=== PATIENT | male | born 1965 | race Caucasian/White ===

== ENCOUNTER 2019-03-04 09:07 | Inpatient (IN) | payer OTHER ==
[2019-03-04 09:27] VITALS: BMI 25.7
--- NOTE | 2019-03-04 09:48 | HP ---
COWS - Scale Resting Pulse: 1= TN 81-100 Sweatin= Chills/Flushing Restless Observation: 0= Sits Still Pupil Size: 0= Normal to Room Light (last used in the morning so low withdrawals scale) Bone or Joint Aches: 0= None Runny Nose/ Eye Tearin= Nasal Congestion GI Upset > 30mins: 2= Nausea/Diarrhea Tremor Observation: 2= Slight Tremor Visible Yawning Observation: 0= None Anxiety or Irritability: 0= None Goose Flesh Skin: 3=Piloerection COWS Score: 10 CIWA Score - Admission Criteria OASAS Guidelines: Admission for Medically Managed Detox: Requires at least one of the followin. CIWA greater than 12 2. Seizures within the past 24 hours 3. Delirium tremens within the past 24 hours 4. Hallucinations within the past 24 hours 5. Acute intervention needed for co occurring medical disorder 6. Acute intervention needed for co occurring psychiatric disorder 7. Severe withdrawal that cannot be handled at a lower level of care (continued vomiting, continued diarrhea, abnormal vital signs) requiring intravenous medication and/or fluids 8. Admitting History and Physical - Admission Chief Complaint: "I want to detox from heroin alcohol and cocaine." History of Present Illness: 53-year-old male sent in 1 Am today to be evaluated for cellulitis and found to not have acute cellulitis as per attending note. He was sent back to [facility] for admission of substance use disorder "He does admit to IV drug use and has multiple scars and track lindquist along the hands and forearms with no tenderness or areas of fluctuance There are multiple areas with scabbing but no signs consistent with acute cellulitis Plan for x-rays to rule out foreign body with plan to DC back to rehab facility " He is using 15-20 bags of heroin intravenously for 30 years. He last used yesterday. He endorses getting some street methadone yesterday. He overdosed last year and seen in the [place]. He was abstinent for 8.5 years and relapsed 20 months. He attempted detox at [facility] and [facility] in [facility] [place] on 2 weeks ago and last week, respectively. He was to be referred to long-term rehab but there were no beds and he started using. He is drinking 2 pints whisky every other day, 4-5 beers every other day. He last drank 4 days ago. He smokes 1/2 ppd of ciggarettes. He is using cocaine $10 3 times per week, when he has money. 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 He is unemployed and homeless but not in care home system. He has slept on the streets or go to ER's. History Source: Patient Limitations to Obtaining History: No Limitations - Past Medical History Psych: Yes: Anxiety - Past Surgical History Past Surgical History: Yes: None - Advance Directives Advance Directives: No: Living Will, Health Care Proxy, DNR - Smoking History Smoking history: Current every day smoker Aproximately how many cigarettes per day: 10 - Alcohol/Substance Use Hx Alcohol Use: No - Social History Usual Living Arrangement: Yes: Alone Do you think of yourself as: Straight/Heterosexual ADL: Independent Occupation: grill chef, unemployed History of Recent Travel: No Admission ROS S - HPI Allergies/Adverse Reactions: Allergies Allergy/AdvReac Type Severity Reaction Status Date / Time haloperidol [From Haldol] Allergy Difficulty Verified 03/04/19 09:21 Breathing Exam Limitations: No Limitations - Ebola screening Have you traveled outside of the country in the last 21 days: No Have you had contact with anyone from an Ebola affected area: No Have you been sick,other than usual withdrawal symptoms: No Do you have a fever: No - Review of Systems Constitutional: Chills, Unintentional Wgt. Loss EENT: reports: No Symptoms Reported Respiratory: reports: No Symptoms reported Cardiac: reports: No Symptoms Reported GI: reports: No Symptoms Reported : reports: No Symptoms Reported Musculoskeletal: reports: No Symptoms Reported Integumentary: reports: No Symptoms Reported Neuro: reports: No Symptoms reported Endocrine: reports: No Symptoms Reported Hematology: reports: No Symptoms Reported Psychiatric: reports: Judgement Intact, Mood/Affect Appropiate, Orientated x3 Other Systems: Reviewed and Negative Patient History - Patient Medical History Hx Anemia: No Hx Asthma: No Hx Chronic Obstructive Pulmonary Disease (COPD): No Hx Cancer: No Hx Cardiac Disorders: No Hx Congestive Heart Failure: No Hx Hypertension: No Hx Hypercholesterolemia: No Hx Pacemaker: No HX Cerebrovascular Accident: No Hx Seizures: No Hx Dementia: No Hx Diabetes: No Hx Gastrointestinal Disorders: No Hx Liver Disease: No Hx Genitourinary Disorders: No Hx Sexually Transmitted Disorders: No Hx Renal Disease (ESRD): No Hx Thyroid Disease: No Hx Human Immunodeficiency Virus (HIV): No (tested last week negative) Hx Hepatitis C: Yes (treated but no follow up) Hx Depression: No Hx Suicide Attempt: No Hx Bipolar Disorder: No Hx Schizophrenia: No Other Medical History: anxiety disorder - Patient Surgical History Past Surgical History: No - Smoking Cessation Smoking history: Current every day smoker Aproximately how many cigarettes per day: 10 Hx Chewing Tobacco Use: No Initiated information on smoking cessation: Yes 'Breaking Loose' booklet given: 03/04/19 - Substances abused Alcohol Substance route: Oral Frequency: Daily Amount used: 2 pint of whiskey & 4 beers Age of first use: 17 Date of last use: 02/18/19 Heroin Substance route: Injection Frequency: Daily Amount used: 15 bags Age of first use: 23 Date of last use: 03/03/19 Cocaine Substance route: Injection Frequency: Daily Amount used: $20-30 Age of first use: 17 Date of last use: 03/02/19 Admission Physical Exam S - Vital Signs Vital Signs: Vital Signs - 24 hr 03/04/19 09:22 Temperature 97.1 F L Pulse Rate 90 Respiratory 18 Rate Blood Pressure 115/67 - Physical General Appearance: Yes: No Apparent Distress, Tremorous, Sweating HEENTM: Yes: EOMI, Hearing grossly Normal, Normal ENT Inspection, Normocephalic , Normal Voice, GERTRUDIS, Pharynx Normal, Tm's normal Respiratory: Yes: Chest Non-Tender, Lungs Clear, Normal Breath Sounds, No Respiratory Distress, No Accessory Muscle Use, Wheezing Neck: Yes: No masses,lesions,Nodules, Supple, Trachea in good position Breast: Yes: Within Normal Limits Cardiology: Yes: Regular Rhythm, S1, S2, Tachycardia Abdominal: Yes: Non Tender, Flat, Soft Genitourinary: Yes: Within Normal Limits Back: Yes: Normal Inspection Musculoskeletal: Yes: full range of Motion, Gait Steady, Pelvis Stable Extremities: Yes: Normal Capillary Refill, Normal Inspection, Normal Range of Motion, Non-Tender, Other (multiple track lindquist bilaterally on forearms ventral , and hands dorsum.) Neurological: Yes: reinstatement clerk II-XII NML intact, Fully Oriented, Alert, Motor Strength 5/5, Normal Mood/Affect, Normal Response Integumentary: Yes: Normal Color, Warm Lymphatic: Yes: Within Normal Limits Cleared for Admission S - Detox or Rehab [facility] Level of Care: Medically Managed Detox Regimen/Protocol: Methadone Claeared for Rehab Admission: No Screened but not Admitted - Documentation of Visit Screened but not Admitted: No Breathalyzer - Breathalyzer Breathalyzer: 0 Urine Drug Screen - Test Device Lot number: [id number] Expiration date: 09/10/20 - Control Is test valid?: Yes - Results Drug screen NEGATIVE: No Urine drug screen results: CARMEL-Cocaine, FEN-Fentanyl, MOP-Opiates, MTD-Methadone , BZO-Benzodiazepines Inpatient Rehab Admission - Rehab Decision to Admit Inpatient rehab admission?: No
[2019-03-04] MEDS ORDERED: hydrOXYzine PAMOATE 25 MG CAPSULE (FP) PO PRN (09:58)
[2019-03-04] MEDS ORDERED: MAG HYDROX/AL HYDROX/SIMETH 30 ML UNIT-DOSE CUP PO PRN (09:58)
[2019-03-04] MEDS ORDERED: cloNIDine HCL 0.1 MG TABLET PO PRN (09:58)
[2019-03-04] MEDS ORDERED: METHOCARBAMOL 500 MG TABLET PO PRN (09:58)
[2019-03-04] MEDS ORDERED: MAGNESIUM CITRATE 300 ML BOTTLE PO PRN (09:58)
[2019-03-04] MEDS ORDERED: MAGNESIUM HYDROX 2400MG/30ML ORAL SUSPENSION 30 ML CUP PO PRN (09:58)
[2019-03-04] MEDS ORDERED: ACETAMINOPHEN 325 MG TABLET (FP) PO PRN ×2 (09:58)
[2019-03-04] MEDS ORDERED: MELATONIN 5 MG TABLETS PO PRN (09:58)
[2019-03-04] MEDS ORDERED: BISMUTH SUBSALICYLATE 262 MG/15 ML BTL PO PRN (09:58)
[2019-03-04] MEDS ORDERED: MENTHOL/PHENOL 1 EACH UD MM PRN (09:58)
[2019-03-04] MEDS ORDERED: IBUPROFEN 400 MG TABLET (FP) PO PRN (09:58)
[2019-03-04] MEDS ORDERED: METHADONE HCL 10 MG TABLET (FOR DETOX USE ONLY) PO ONE (10:30)
[2019-03-04] MEDS: PRENATAL VITAMINS W/ FOLIC ACID TABLET (FP) PO SCH (10:53)
[2019-03-04] MEDS: NICOTINE 7 MG/24 HOURS TOPICAL PATCH TD SCH (10:53)
[2019-03-04 15:11] LABS: HEMATOCRIT 36.5 % (35.4-49); HEMOGLOBIN 11.9 GM/dL (11.7-16.9); MCH 28.1 pg (25.7-33.7); MCHC 32.5 g/dl (32.0-35.9); MEAN CELL VOLUME 86.4 fl (80-96); MEAN PLT VOLUME 7.3 fl (7.5-11.1); PLATELET COUNT 513 K/MM3 (134-434); RBC 4.22 M/mm3 (4.00-5.60); RDW 15.4 % (11.9-15.9); WHITE BLOOD COUNT 5.7 K/mm3 (4.0-10.0)
[2019-03-04 15:33] LABS: ALBUMIN 3.1 g/dl (3.4-5.0); BILIRUBIN,TOTAL 0.2 mg/dL (0.2-1); BLOOD UREA NITROGEN 7.4 mg/dL (7-18); CALCIUM 9.1 mg/dL (8.5-10.1); CREATININE 0.6 mg/dL (0.55-1.3); POTASSIUM 4.4 mmol/L (3.5-5.1); TOT PROT 7.6 g/dl (6.4-8.2)
[2019-03-04] MEDS: THIAMINE HCL 100 MG TABLET (FP) PO SCH (22:32)
[2019-03-05] MEDS ORDERED: METHADONE HCL 5 MG TABLET (FOR DETOX USE ONLY) ONE (09:35)
[2019-03-05] MEDS ORDERED: METHADONE HCL 10 MG TABLET (FOR DETOX USE ONLY) ONE (09:35)
[2019-03-05] MEDS ORDERED: METHADONE (DETOX) 20 MG, METHADONE (DETOX) 5 MG PO ONE (10:00)
[2019-03-05] MEDS: NICOTINE 7 MG/24 HOURS TOPICAL PATCH TD SCH (10:22)
[2019-03-05] MEDS: PRENATAL VITAMINS W/ FOLIC ACID TABLET (FP) PO SCH (10:22)
--- NOTE | 2019-03-05 11:46 | PN ---
S COWS - Scale Resting Pulse: 1= ND 81-100 Sweatin= No chills or Flushing Restless Observation: 0= Sits Still Pupil Size: 0= Normal to Room Light Bone or Joint Aches: 0= None Runny Nose/ Eye Tearin= None GI Upset > 30mins: 2= Nausea/Diarrhea Tremor Observation of Outstretched Hands: 0= None Yawning Observation: 0= None Anxiety or Irritability: 0= None Goose Flesh Skin: 0=Smooth Skin COWS Score: 3 BHS Progress Note (SOAP) Subjective: Complaints of nausea Sleeping and eating well Normal bowels Objective: Laboratory Last Values WBC 5.7 K/mm3 (4.0-10.0) 03/04/19 10:20 RBC 4.22 M/mm3 (4.00-5.60) 03/04/19 10:20 Hgb 11.9 GM/dL (11.7-16.9) 03/04/19 10:20 Hct 36.5 % (35.4-49) 03/04/19 10:20 MCV 86.4 fl (80-96) 03/04/19 10:20 MCH 28.1 pg (25.7-33.7) 03/04/19 10:20 MCHC 32.5 g/dl (32.0-35.9) 03/04/19 10:20 RDW 15.4 % (11.9-15.9) 03/04/19 10:20 Plt Count 513 K/MM3 (134-434) H 03/04/19 10:20 MPV 7.3 fl (7.5-11.1) L 03/04/19 10:20 Sodium 141 mmol/L (136-145) 03/04/19 10:20 Potassium 4.4 mmol/L (3.5-5.1) 03/04/19 10:20 Chloride 106 mmol/L (98-107) 03/04/19 10:20 Carbon Dioxide 30 mmol/L (21-32) 03/04/19 10:20 Anion Gap 5 MMOL/L (8-16) L 03/04/19 10:20 BUN 7.4 mg/dL (7-18) 03/04/19 10:20 Creatinine 0.6 mg/dL (0.55-1.3) 03/04/19 10:20 Est GFR (CKD-EPI)AfAm 134.92 03/04/19 10:20 Est GFR (CKD-EPI)NonAf 116.41 03/04/19 10:20 Random Glucose 88 mg/dL (74-106) 03/04/19 10:20 Calcium 9.1 mg/dL (8.5-10.1) 03/04/19 10:20 Total Bilirubin 0.2 mg/dL (0.2-1) 03/04/19 10:20 AST 30 U/L (15-37) 03/04/19 10:20 ALT 45 U/L (13-61) 03/04/19 10:20 Alkaline Phosphatase 64 U/L (45-117) 03/04/19 10:20 Total Protein 7.6 g/dl (6.4-8.2) 03/04/19 10:20 Albumin 3.1 g/dl (3.4-5.0) L 03/04/19 10:20 RPR Titer Nonreactive (NONREACTIVE) 03/04/19 10:20 Vital Signs Temperature 97.9 F 03/05/19 11:11 Pulse Rate 77 03/05/19 11:11 Respiratory Rate 19 03/05/19 11:11 Blood Pressure 140/65 03/05/19 11:11 O2 Sat by Pulse Oximetry (%) 03/05/19 11:49 HR at 6 am: 85 Gnl: WDWN, in NAd, in bed, easily aroused Alert, cooperative Skin: old abscess/well healed right posterior forearm ~ 2cm 03/05/19 11:51 Assessment: 03/05/19 11:50 1. Opioid withdrawal Plan: 1. continue Methadone protocol
[2019-03-05] MEDS: THIAMINE HCL 100 MG TABLET (FP) PO SCH (22:40)
[2019-03-06 09:53] VITALS: BP 116/61; PULSE 80; TEMP 98.1
[2019-03-06] MEDS ORDERED: METHADONE HCL 10 MG TABLET (FOR DETOX USE ONLY) PO ONE (10:00)
[2019-03-06] MEDS: PRENATAL VITAMINS W/ FOLIC ACID TABLET (FP) PO SCH (10:56)
[2019-03-06] MEDS: NICOTINE 7 MG/24 HOURS TOPICAL PATCH TD SCH (10:56)
--- NOTE | 2019-03-06 13:58 | PN ---
S Progress Note Note: pt refused to stay and complete detox pt advised to stay and complete detox to prevent relapse, seizures, DTs, OD, loss, pt chose to sign out AMA.
--- NOTE | 2019-03-06 13:59 | DS ---
[facility] Detox Discharge Summary Admission Date: 03/04/19 - History Present History: Opioid Dependence - Physical Exam Results Vital Signs: Vital Signs Temperature 98.1 F 03/06/19 09:52 Pulse Rate 80 03/06/19 09:52 Respiratory Rate 17 03/06/19 09:52 Blood Pressure 116/61 03/06/19 09:52 O2 Sat by Pulse Oximetry (%) Pertinent Admission Physical Exam Findings: Vital Signs Temperature 98.1 F 03/06/19 09:52 Pulse Rate 80 03/06/19 09:52 Respiratory Rate 17 03/06/19 09:52 Blood Pressure 116/61 03/06/19 09:52 O2 Sat by Pulse Oximetry (%) Laboratory Tests 03/04/19 03/04/19 03/04/19 10:20 10:20 10:20 WBC 5.7 RBC 4.22 Hgb 11.9 Hct 36.5 MCV 86.4 MCH 28.1 MCHC 32.5 RDW 15.4 Plt Count 513 H MPV 7.3 L Sodium 141 Potassium 4.4 Chloride 106 Carbon Dioxide 30 Anion Gap 5 L BUN 7.4 Creatinine 0.6 Est GFR (CKD-EPI)AfAm 134.92 Est GFR (CKD-EPI)NonAf 116.41 Random Glucose 88 Calcium 9.1 Total Bilirubin 0.2 AST 30 ALT 45 Alkaline Phosphatase 64 Total Protein 7.6 Albumin 3.1 L RPR Titer Nonreactive aaox3 ambulating no acute distress - Treatment Hospital Course: Rehab Referral Accepted - Medication Discharge Medications: Ambulatory Orders NK [No Known Home Medication] 03/03/19 - Diagnosis (1) Opioid dependence with withdrawal Status: Chronic (2) Active intravenous drug use Status: Chronic (3) Track lindquist due to intravenous drug abuse Status: Chronic - AMA Did Patient Leave Against Medical Advice: Yes
[2019-03-07] MEDS ORDERED: METHADONE (DETOX) 10 MG, METHADONE (DETOX) 5 MG PO ONE (10:00)
[2019-03-08] MEDS ORDERED: METHADONE HCL 10 MG TABLET (FOR DETOX USE ONLY) PO ONE (10:00)
[2019-03-09] MEDS ORDERED: METHADONE HCL 5 MG TABLET (FOR DETOX USE ONLY) PO ONE (06:00)
== END 2019-03-06 12:25 | disposition left against medical advice (07) | DRG 770 ==
LOC: YASAS 09:07 → Y6N 10:04
PROVIDERS: ADMIT Allergy & Immunology; ATTEND Allergy & Immunology
PROC: HZ2ZZZZ Detoxification Services for Substance Abuse Treatment (ICD-10-PCS; principal; 2019-03-04)
DX: F11.23 Opioid dependence with withdrawal (principal); F10.230 Alcohol dependence with withdrawal, uncomplicated; F14.20 Cocaine dependence, uncomplicated; F17.210 Nicotine dependence, cigarettes, uncomplicated; F41.9 Anxiety disorder, unspecified; Z86.19 Personal history of other infectious and parasitic diseases; Z88.8 Allergy status to other drugs, medicaments and biological substances
CPT/HCPCS: 36415; 73090-TC-LT-FY; 73090-TC-RT-FY; 73130-TC-LT-FY; 73130-TC-RT-FY; 80053; 85027; 86593; 99282-25

== ENCOUNTER 2019-03-31 17:44 | Inpatient (IN) | payer OTHER ==
--- NOTE | 2019-03-31 19:52 | BHS.RME ---
Substance Use & Tx History - Last Treatment Where was last treatment: Detox (@ [facility] Feb 2019 . heroin : 10-15 bags/day , latest use yesterday methadone illicit street ( yesterday ) iV , denies abscess , OD x 6 , has narcan @ home cocaine : 40 $ /day IV etoh - 1 -2 pints x 4-5 beers , latest use 2 days ago tobacco : 1 ppd pmhx :hep C tx) COWS - Scale Resting Pulse: 1= [place] 81-100 Sweatin= Chills/Flushing Restless Observation: 1= Difficult to Sit Still Pupil Size: 0= Normal to Room Light Bone or Joint Aches: 1= Mild Discomfort Runny Nose/ Eye Tearin= Runny Nose/Eyes GI Upset > 30mins: 1= Stomach Cramp Tremor Observation: 0= None Yawning Observation: 0= None Anxiety or Irritability: 1=Feels Anxious/Irritable Goose Flesh Skin: 0=Smooth Skin COWS Score: 8 CIWA Nausea/Vomitin-No Nausea/No Vomiting Muscle Tremors: None Anxiety: 1-Mildly Anxious Agitation: 1-Slight > Activity Paroxysmal Sweats: 1-Minimal Palms Moist Orientation: 0-Oriented Tacttile Disturbances: 1-Very Mild Itch/Numbness Auditory Disturbances: 0-None Visual Disturbances: 0-None Headache: 0-None Present CIWA-Ar Total Score: 4
[2019-03-31 21:34] VITALS: BMI 26.1
--- NOTE | 2019-03-31 21:50 | HP ---
COWS - Scale Resting Pulse: 1= [place] 81-100 Sweatin= Chills/Flushing Restless Observation: 1= Difficult to Sit Still Pupil Size: 0= Normal to Room Light Bone or Joint Aches: 1= Mild Discomfort Runny Nose/ Eye Tearin= Runny Nose/Eyes GI Upset > 30mins: 1= Stomach Cramp Tremor Observation: 0= None Yawning Observation: 0= None Anxiety or Irritability: 1=Feels Anxious/Irritable Goose Flesh Skin: 0=Smooth Skin COWS Score: 8 CIWA Score Nausea/Vomitin-No Nausea/No Vomiting Muscle Tremors: None Anxiety: 1-Mildly Anxious Agitation: 1-Slight > Activity Paroxysmal Sweats: 1-Minimal Palms Moist Orientation: 0-Oriented Tacttile Disturbances: 1-Very Mild Itch/Numbness Auditory Disturbances: 0-None Visual Disturbances: 0-None Headache: 0-None Present CIWA-Ar Total Score: 4 - Admission Criteria OASAS Guidelines: Admission for Medically Managed Detox: Requires at least one of the followin. CIWA greater than 12 2. Seizures within the past 24 hours 3. Delirium tremens within the past 24 hours 4. Hallucinations within the past 24 hours 5. Acute intervention needed for co occurring medical disorder 6. Acute intervention needed for co occurring psychiatric disorder 7. Severe withdrawal that cannot be handled at a lower level of care (continued vomiting, continued diarrhea, abnormal vital signs) requiring intravenous medication and/or fluids 8. Admitting History and Physical - Past Medical History Psych: Yes: Anxiety - Past Surgical History Past Surgical History: Yes: None - Smoking History Smoking history: Current every day smoker Have you smoked in the past 12 months: Yes Aproximately how many cigarettes per day: 15 - Alcohol/Substance Use Hx Alcohol Use: No - Social History ADL: Independent Occupation: chef & owner, unemployed History of Recent Travel: No Admission ROS S - HPI Allergies/Adverse Reactions: Allergies Allergy/AdvReac Type Severity Reaction Status Date / Time haloperidol [From Haldol] Allergy Difficulty Verified 03/31/19 21:24 Breathing History of Present Illness: 53 y.o. male for etoh and opiate detox Detox (@ [facility] Feb 2019 . heroin : 10-15 bags/day , latest use yesterday methadone illicit street ( yesterday ) iV , denies abscess , OD x 6 , has narcan @ home cocaine : 40 $ /day IV etoh - 1 -2 pints x 4-5 beers , latest use 2 days ago tobacco : 1 ppd pmhx :hep C tx states was at [facility] facility and did not have ETOH x 2 days . Exam Limitations: No Limitations - Review of Systems Constitutional: No Symptoms Reported EENT: reports: No Symptoms Reported Respiratory: reports: No Symptoms reported Cardiac: reports: No Symptoms Reported GI: reports: See HPI : reports: No Symptoms Reported Musculoskeletal: reports: See HPI Integumentary: reports: See HPI, Other (abscess incised 1 week ago @ [facility] per pt, given ABx IV and p.o. did not complete course of ABx) Neuro: reports: See HPI Endocrine: reports: No Symptoms Reported Psychiatric: reports: Orientated x3, Agitated, Anxious Patient History - Patient Medical History Hx Anemia: No Hx Asthma: No Hx Chronic Obstructive Pulmonary Disease (COPD): No Hx Cancer: No Hx Cardiac Disorders: No Hx Congestive Heart Failure: No Hx Hypertension: No Hx Hypercholesterolemia: No Hx Pacemaker: No HX Cerebrovascular Accident: No Hx Seizures: No Hx Dementia: No Hx Diabetes: No Hx Gastrointestinal Disorders: No Hx Liver Disease: No Hx Genitourinary Disorders: No Hx Sexually Transmitted Disorders: No Hx Renal Disease (ESRD): No Hx Thyroid Disease: No Hx Human Immunodeficiency Virus (HIV): No (tested last week negative) Hx Hepatitis C: Yes (treated but no follow up) Hx Depression: No Hx Suicide Attempt: No Hx Bipolar Disorder: No Hx Schizophrenia: No - Patient Surgical History Past Surgical History: No Hx Neurologic Surgery: No Hx Cataract Extraction: No Hx Cardiac Surgery: No Hx Lung Surgery: No Hx Breast Surgery: No Hx Breast Biopsy: No Hx Abdominal Surgery: No Hx Appendectomy: No Hx Cholecystectomy: No Hx Genitourinary Surgery: No Hx Section: No Hx Orthopedic Surgery: No Anesthesia Reaction: No - PPD History Previous Implant?: Yes Documented Results: Negative w/proof Implanted On Prior R Admission?: Yes Date: 03/06/19 - Reproductive History Patient : No - Smoking Cessation Smoking history: Current every day smoker Have you smoked in the past 12 months: Yes Aproximately how many cigarettes per day: 15 Hx Chewing Tobacco Use: No Initiated information on smoking cessation: Yes 'Breaking Loose' booklet given: 03/31/19 - Substances abused Alcohol Substance route: Oral Frequency: Daily Amount used: 2 PINTS OF WHISKEY/4 22OZ BEERS Age of first use: 17 Date of last use: 03/29/19 Heroin Substance route: Injection Frequency: Daily Amount used: 10-15 BAGS Age of first use: 23 Date of last use: 03/23/19 Admission Physical Exam BHS - Vital Signs Vital Signs: Vital Signs - 24 hr 03/31/19 21:25 Temperature 97.6 F Pulse Rate 82 Respiratory 18 Rate Blood Pressure 112/64 - Physical General Appearance: Yes: Mild Distress, Anxious HEENTM: Yes: EOMI, Normocephalic, Normal Voice, Nasal Congestion, Other (poor dentition , many missing teeth) Respiratory: Yes: Chest Non-Tender, Lungs Clear, Normal Breath Sounds, No Respiratory Distress, No Accessory Muscle Use Neck: Yes: No masses,lesions,Nodules, Trachea in good position Cardiology: Yes: Regular Rhythm, Regular Rate, S1, S2, Other (pt denies symptoms at this time , states was told he may have benitez an MS 3 years ago will repeat ekg in the morning.) Abdominal: Yes: Normal Bowel Sounds, Non Tender, Soft Back: Yes: Normal Inspection Musculoskeletal: Yes: Gait Steady Neurological: Yes: Fully Oriented, Alert, Motor Strength 5/5, Normal Mood/Affect Integumentary: Yes: Warm, Other (R FA sutures , R FA extensor surface w/ open area of wound no d/c , left FA w/ track lindquist , edema. erythema , left side of neck track lindquist, dorsum of hands w/ track lindquist.) - Diagnostic (1) Cocaine use disorder Current Visit: Yes Status: Chronic (2) Alcohol use disorder Current Visit: Yes Status: Chronic (3) Opioid dependence with withdrawal Current Visit: No Status: Chronic Breathalyzer - Breathalyzer Breathalyzer: 0 Urine Drug Screen - Test Device Lot number: [id number] Expiration date: 01/10/21 - Control Is test valid?: Yes - Results Drug screen NEGATIVE: No Urine drug screen results: CARMEL-Cocaine, FEN-Fentanyl, MOP-Opiates, MTD-Methadone , BZO-Benzodiazepines Inpatient Rehab Admission - Rehab Decision to Admit Inpatient rehab admission?: No
[2019-03-31] MEDS ORDERED: MAGNESIUM HYDROX 2400MG/30ML ORAL SUSPENSION 30 ML CUP PO PRN (21:53)
[2019-03-31] MEDS ORDERED: ACETAMINOPHEN 325 MG TABLET (FP) PO PRN ×2 (21:53)
[2019-03-31] MEDS ORDERED: hydrOXYzine PAMOATE 25 MG CAPSULE (FP) PO PRN (21:53)
[2019-03-31] MEDS ORDERED: MAG HYDROX/AL HYDROX/SIMETH 30 ML UNIT-DOSE CUP PO PRN (21:53)
[2019-03-31] MEDS ORDERED: BISMUTH SUBSALICYLATE 524 MG/30 ML UD PO PRN (21:53)
[2019-03-31] MEDS ORDERED: METHOCARBAMOL 500 MG TABLET PO PRN (21:53)
[2019-03-31] MEDS ORDERED: MENTHOL/PHENOL 1 EACH UD MM PRN (21:53)
[2019-03-31] MEDS ORDERED: IBUPROFEN 400 MG TABLET (FP) PO PRN (21:53)
[2019-03-31] MEDS ORDERED: MAGNESIUM CITRATE 300 ML BOTTLE PO PRN (21:53)
[2019-03-31] MEDS ORDERED: METHADONE HCL 10 MG TABLET (FOR DETOX USE ONLY) PO ONE (21:55)
[2019-03-31] MEDS ORDERED: chlordiazePOXIDE HCL 10 MG CAPSULE PO PRN (21:56)
[2019-03-31] MEDS: chlordiazePOXIDE HCL 25 MG CAPSULE PO SCH (22:56)
[2019-03-31] MEDS: ASPIRIN 81 MG CHEWABLE TABLETS PO SCH (22:57)
[2019-03-31] MEDS: THIAMINE HCL 100 MG TABLET (FP) PO SCH (22:57)
[2019-03-31] MEDS: BACITRACIN/POLYMYXIN B SULFATE 15 GM TUBE TP SCH (22:57)
[2019-03-31] MEDS: MELATONIN 5 MG TABLETS PO PRN (22:57)
[2019-03-31] MEDS: SULFAMETHOXAZOLE/TRIMETHOPRIM 800MG/160MG D.S. TABLET PO SCH (22:57)
[2019-03-31] MEDS: CLINDAMYCIN HCL 300 MG CAPSULE PO SCH (23:32)
[2019-04-01] MEDS: chlordiazePOXIDE HCL 25 MG CAPSULE PO SCH ×3 (05:32→22:16)
[2019-04-01] MEDS: CLINDAMYCIN HCL 300 MG CAPSULE PO SCH ×4 (07:14→23:47)
--- NOTE | 2019-04-01 08:35 | CONSULT ---
[facility] Psychiatric Consult - Data Date of interview: 04/01/19 Admission source: Self-referred Identifying data: Mr Darline Hernandez is a 53 years old single male, father of a 14 years old daughter, unemployed with no source of income, homeless seeking detox treatment for alcohol, opioid and cocaine Substance Abuse History: Reports history of alcohol, heroin, non prescribed methadone and cocaine. Refer to addiction counselor's summary for further information Medical History: Reports history of hepatitis C. Smokes 15 cigarettes daily Psychiatric History: Reports history of psychiatric treatment in [place] years ago for treatment of his addiction. Claims that he was prescribed Xanax and Percocet. Denies previous psychiatric hospitalization or suicidal attempt. At present, reports feeling fine with mild difficulty to sleep Physical/Sexual Abuse/Trauma History: Denies history of abuse as a child or DV relationship as an adult Mental Status Exam - Mental Status Exam Alert and Oriented to: Time, Place, Person Cognitive Function: Fair Patient Appearance: Disheveled Mood: Hopeful, Euthymic Patient Behavior: Cooperative Speech Pattern: Clear, Artificially Ventilated Thought Process: Intact, Goal Oriented Thought Disorder: Not Present Hallucinations: Denies Suicidal Ideation: Denies Homicidal Ideation: Denies Insight/Judgement: Poor Sleep: Poorly Appetite: Good Muscle strength/Tone: Normal Gait/Station: Normal Psychiatric Findings - Problem List (Friendly 1, 2,3) (1) Substance-induced sleep disorder Current Visit: Yes Status: Acute (2) Alcohol dependence, uncomplicated Current Visit: Yes Status: Acute (3) Opioid dependence with withdrawal Current Visit: No Status: Acute (4) Cocaine dependence Current Visit: Yes Status: Acute (5) Nicotine dependence Current Visit: Yes Status: Chronic (6) Hepatitis C Current Visit: Yes Status: Chronic - Initial Treatment Plan Initial Treatment Plan: 1) Start Melatonin 5 mg po HS prn for insomnia. 2) Continue inpatient detoxification
[2019-04-01] MEDS ORDERED: METHADONE HCL 10 MG TABLET (FOR DETOX USE ONLY) ONE (08:47)
[2019-04-01] MEDS ORDERED: METHADONE HCL 5 MG TABLET (FOR DETOX USE ONLY) ONE (08:47)
[2019-04-01] MEDS ORDERED: METHADONE (DETOX) 20 MG, METHADONE (DETOX) 5 MG PO ONE (10:00)
[2019-04-01] MEDS: SULFAMETHOXAZOLE/TRIMETHOPRIM 800MG/160MG D.S. TABLET PO SCH ×2 (10:08→22:16)
[2019-04-01] MEDS: ASPIRIN 81 MG CHEWABLE TABLETS PO SCH (10:08)
[2019-04-01] MEDS: PRENATAL VITAMINS W/ FOLIC ACID TABLET (FP) PO SCH (10:08)
--- NOTE | 2019-04-01 11:31 | EKG ---
Test Reason : Blood Pressure : / mmHG Vent. Rate : 069 BPM Atrial Rate : 069 BPM P-R Int : 146 ms QRS Dur : 094 ms QT Int : 376 ms P-R-T Axes : -04 -25 -10 degrees QTc Int : 402 ms NORMAL SINUS RHYTHM VOLTAGE CRITERIA FOR LEFT VENTRICULAR HYPERTROPHY ABNORMAL ECG Confirmed by MD PAZ, TAMIE ([id number]) on 04/01/2019 11:31:21 AM Referred By: Confirmed By:TAMIE MULLEN MD
--- NOTE | 2019-04-01 11:33 | EKG ---
Test Reason : Blood Pressure : / mmHG Vent. Rate : 083 BPM Atrial Rate : 083 BPM P-R Int : 148 ms QRS Dur : 088 ms QT Int : 356 ms P-R-T Axes : 071 082 069 degrees QTc Int : 418 ms NORMAL SINUS RHYTHM LEFT VENTRICULAR HYPERTROPHY ST ELEVATION, CONSIDER EARLY REPOLARIZATION, PERICARDITIS, OR INJURY ABNORMAL ECG NO PREVIOUS ECGS AVAILABLE Confirmed by MD MULLEN MOYSES ([id number]) on 04/01/2019 11:32:39 AM Referred By: Confirmed By:TAMIE MULLEN MD
--- NOTE | 2019-04-01 12:05 | PN ---
[facility] CIWA - CIWA Score Nausea/Vomitin-No Nausea/No Vomiting Muscle Tremors: None Anxiety: 1-Mildly Anxious Agitation: 0-Normal Activity Paroxysmal Sweats: 2 Orientation: 0-Oriented Tacttile Disturbances: 1-Very Mild Itch/Numbness Auditory Disturbances: 0-None Visual Disturbances: 0-None Headache: 0-None Present CIWA-Ar Total Score: 4 S COWS - Scale Resting Pulse: 1= [place] 81-100 Sweatin= Chills/Flushing Restless Observation: 1= Difficult to Sit Still Pupil Size: 1= Pupils >than Normal Bone or Joint Aches: 1= Mild Discomfort Runny Nose/ Eye Tearin= Nasal Congestion GI Upset > 30mins: 0= None Tremor Observation of Outstretched Hands: 0= None Yawning Observation: 0= None Anxiety or Irritability: 1=Feels Anxious/Irritable Goose Flesh Skin: 0=Smooth Skin COWS Score: 7 [facility] Progress Note (SOAP) Subjective: interrupted sleep,sweats Objective: 04/01/19 12:05 Vital Signs Temperature 98.4 F 04/01/19 09:00 Pulse Rate 90 04/01/19 09:00 Respiratory Rate 17 04/01/19 09:00 Blood Pressure 124/59 L 04/01/19 09:00 O2 Sat by Pulse Oximetry (%) pending labs prt aox3 in nad lying in bed Assessment: 04/01/19 12:05 withdrawal sx's Plan: cont. detox increase fluids f/up pending labs
[2019-04-01] MEDS: CLINDAMYCIN HCL 150 MG CAPSULE (FP) PO SCH (14:08)
[2019-04-01] MEDS: BACITRACIN/POLYMYXIN B SULFATE 15 GM TUBE TP SCH ×2 (14:36→22:26)
[2019-04-01] MEDS: THIAMINE HCL 100 MG TABLET (FP) PO SCH (22:17)
[2019-04-01] MEDS: MELATONIN 5 MG TABLETS PO PRN (22:17)
[2019-04-02] MEDS: chlordiazePOXIDE HCL 10 MG CAPSULE PO SCH ×3 (05:56→22:17)
[2019-04-02] MEDS: CLINDAMYCIN HCL 300 MG CAPSULE PO SCH ×2 (05:56→13:18)
[2019-04-02] MEDS ORDERED: METHADONE HCL 10 MG TABLET (FOR DETOX USE ONLY) PO ONE (10:00)
[2019-04-02] MEDS ORDERED: cloNIDine HCL 0.1 MG TABLET PO PRN (10:36)
--- NOTE | 2019-04-02 10:43 | PN ---
[facility] CIWA - CIWA Score Nausea/Vomitin-Mild Nausea/No Vomiting Muscle Tremors: 2 Anxiety: 1-Mildly Anxious Agitation: 1-Slight > Activity Paroxysmal Sweats: No Perspiration Orientation: 0-Oriented Tacttile Disturbances: 0-None Auditory Disturbances: 0-None Visual Disturbances: 0-None Headache: 1-Very Mild CIWA-Ar Total Score: 6 [facility] COWS - Scale Resting Pulse: 1= [place] 81-100 Sweatin= Chills/Flushing Restless Observation: 1= Difficult to Sit Still Pupil Size: 0= Normal to Room Light Bone or Joint Aches: 1= Mild Discomfort Runny Nose/ Eye Tearin= Nasal Congestion GI Upset > 30mins: 1= Stomach Cramp Tremor Observation of Outstretched Hands: 1= Tremor [place], Not Seen Yawning Observation: 1= 1-2x During Session Anxiety or Irritability: 1=Feels Anxious/Irritable Goose Flesh Skin: 0=Smooth Skin COWS Score: 9 [facility] Progress Note (SOAP) Subjective: Pt states he feels OK. Has to go to court today- needs to contact court to excuse his absence O: Vital Signs - 24 hr 04/01/19 04/01/19 04/01/19 13:45 16:24 22:35 Temperature 96.1 F L 98.2 F 97.7 F Pulse Rate 73 74 73 Respiratory 16 16 18 Rate Blood Pressure 124/67 111/73 112/58 L 04/02/19 04/02/19 04/02/19 00:26 03:14 05:51 Temperature 97.9 F Pulse Rate 68 Respiratory 18 18 18 Rate Blood Pressure 146/69 labs from 02/2019 OK a/p: continue detox protocols- OUD/AUD Pt to talk to counselor re court issue
[2019-04-02] MEDS: ASPIRIN 81 MG CHEWABLE TABLETS PO SCH (10:57)
[2019-04-02] MEDS: PRENATAL VITAMINS W/ FOLIC ACID TABLET (FP) PO SCH (10:57)
[2019-04-02] MEDS: SULFAMETHOXAZOLE/TRIMETHOPRIM 800MG/160MG D.S. TABLET PO SCH ×2 (10:57→22:17)
[2019-04-02] MEDS: BACITRACIN/POLYMYXIN B SULFATE 15 GM TUBE TP SCH ×2 (10:58→22:15)
[2019-04-02] MEDS ORDERED: NICOTINE POLACRILEX 4 MG GUM BUC PRN (11:24)
[2019-04-02] MEDS: CLINDAMYCIN HCL 150 MG CAPSULE (FP) PO SCH ×3 (11:51→23:17)
[2019-04-02] MEDS: NICOTINE 21 MG/24 HOURS TOPICAL PATCH TD SCH (11:51)
[2019-04-02] MEDS: THIAMINE HCL 100 MG TABLET (FP) PO SCH (22:17)
[2019-04-02] MEDS: MELATONIN 5 MG TABLETS PO PRN (22:18)
[2019-04-03] MEDS ORDERED: chlordiazePOXIDE HCL 10 MG CAPSULE PO ONE (05:00)
[2019-04-03] MEDS: CLINDAMYCIN HCL 150 MG CAPSULE (FP) PO SCH ×4 (05:42→23:31)
[2019-04-03] MEDS ORDERED: METHADONE HCL 10 MG TABLET (FOR DETOX USE ONLY) ONE (09:25)
[2019-04-03] MEDS ORDERED: METHADONE HCL 5 MG TABLET (FOR DETOX USE ONLY) ONE (09:25)
[2019-04-03] MEDS ORDERED: METHADONE (DETOX) 10 MG, METHADONE (DETOX) 5 MG PO ONE (10:00)
[2019-04-03] MEDS: BACITRACIN/POLYMYXIN B SULFATE 15 GM TUBE TP SCH ×2 (10:35→21:59)
[2019-04-03] MEDS: NICOTINE 21 MG/24 HOURS TOPICAL PATCH TD SCH (10:35)
[2019-04-03] MEDS: SULFAMETHOXAZOLE/TRIMETHOPRIM 800MG/160MG D.S. TABLET PO SCH ×2 (10:36→21:59)
[2019-04-03] MEDS: ASPIRIN 81 MG CHEWABLE TABLETS PO SCH (10:36)
[2019-04-03] MEDS: PRENATAL VITAMINS W/ FOLIC ACID TABLET (FP) PO SCH (10:39)
--- NOTE | 2019-04-03 12:56 | PN ---
[facility] CIWA - CIWA Score Nausea/Vomitin-Mild Nausea/No Vomiting Muscle Tremors: 1-None Visible, but [place] Anxiety: 1-Mildly Anxious Agitation: 0-Normal Activity Paroxysmal Sweats: 2 Orientation: 0-Oriented Tacttile Disturbances: 1-Very Mild Itch/Numbness Auditory Disturbances: 0-None Visual Disturbances: 0-None Headache: 0-None Present CIWA-Ar Total Score: 6 S COWS - Scale Resting Pulse: 1= [place] 81-100 Sweatin= Chills/Flushing Restless Observation: 1= Difficult to Sit Still Pupil Size: 1= Pupils >than Normal Bone or Joint Aches: 0= None Runny Nose/ Eye Tearin= Nasal Congestion GI Upset > 30mins: 1= Stomach Cramp Tremor Observation of Outstretched Hands: 0= None Yawning Observation: 0= None Anxiety or Irritability: 1=Feels Anxious/Irritable Goose Flesh Skin: 0=Smooth Skin COWS Score: 7 [facility] Progress Note (SOAP) Subjective: interrupted sleep, sweats, wants an increase dose of melatonin. Objective: 04/03/19 12:55 Vital Signs Temperature 96.3 F L 04/03/19 09:05 Pulse Rate 82 04/03/19 09:05 Respiratory Rate 16 04/03/19 09:05 Blood Pressure 120/74 04/03/19 09:05 O2 Sat by Pulse Oximetry (%) 04/03/19 12:57 pt aox3 in nad ambulating Assessment: 04/03/19 12:56 withdrawal sx's insomnia 04/03/19 13:00 Plan: cont detox increase fluids melatonin 10mg hs
[2019-04-03] MEDS: MELATONIN 5 MG TABLETS PO SCH (21:59)
[2019-04-03] MEDS: THIAMINE HCL 100 MG TABLET (FP) PO SCH (21:59)
[2019-04-04] MEDS: CLINDAMYCIN HCL 150 MG CAPSULE (FP) PO SCH ×3 (05:09→17:36)
[2019-04-04] MEDS ORDERED: METHADONE HCL 10 MG TABLET (FOR DETOX USE ONLY) PO ONE (10:00)
[2019-04-04] MEDS: PRENATAL VITAMINS W/ FOLIC ACID TABLET (FP) PO SCH (10:04)
[2019-04-04] MEDS: SULFAMETHOXAZOLE/TRIMETHOPRIM 800MG/160MG D.S. TABLET PO SCH ×2 (10:04→22:17)
[2019-04-04] MEDS: ASPIRIN 81 MG CHEWABLE TABLETS PO SCH (10:05)
[2019-04-04] MEDS: BACITRACIN/POLYMYXIN B SULFATE 15 GM TUBE TP SCH ×2 (10:05→22:18)
[2019-04-04] MEDS: NICOTINE 21 MG/24 HOURS TOPICAL PATCH TD SCH (10:05)
--- NOTE | 2019-04-04 16:51 | PN ---
[facility] CIWA - CIWA Score Nausea/Vomitin-No Nausea/No Vomiting Muscle Tremors: None Anxiety: 1-Mildly Anxious Agitation: 0-Normal Activity Paroxysmal Sweats: No Perspiration Orientation: 0-Oriented Tacttile Disturbances: 0-None Auditory Disturbances: 0-None Visual Disturbances: 0-None Headache: 0-None Present CIWA-Ar Total Score: 1 [facility] COWS - Scale Resting Pulse: 1= [place] 81-100 Sweatin= No chills or Flushing Restless Observation: 0= Sits Still Pupil Size: 0= Normal to Room Light Bone or Joint Aches: 0= None Runny Nose/ Eye Tearin= None GI Upset > 30mins: 0= None Tremor Observation of Outstretched Hands: 0= None Yawning Observation: 0= None Anxiety or Irritability: 0= None Goose Flesh Skin: 0=Smooth Skin COWS Score: 1 [facility] Progress Note (SOAP) Subjective: Patient denies current Withdrawal / Detox symptoms and reports that he feels well overall at this time. Objective: PATIENT A & O X 3, OBSERVED AMBULATING ON DETOX UNIT UNASSISTED. IN NO ACUTE DISTRESS. 04/04/19 16:48 Vital Signs Temperature 98.2 F 04/04/19 12:35 Pulse Rate 81 04/04/19 12:35 Respiratory Rate 18 04/04/19 12:35 Blood Pressure 116/61 04/04/19 12:35 O2 Sat by Pulse Oximetry (%) RESULTS OF LABS DRAWN FROM ADMISSION ON 03/04/2019 NOTED. 04/04/19 16:50 Assessment: 04/04/19 16:50 WITHDRAWAL SYMPTOMS. Plan: CONTINUE DETOX.
[2019-04-04] MEDS: THIAMINE HCL 100 MG TABLET (FP) PO SCH (22:17)
[2019-04-04] MEDS: MELATONIN 5 MG TABLETS PO SCH (22:17)
[2019-04-05] MEDS: CLINDAMYCIN HCL 150 MG CAPSULE (FP) PO SCH ×4 (00:14→17:47)
[2019-04-05] MEDS ORDERED: METHADONE HCL 5 MG TABLET (FOR DETOX USE ONLY) PO ONE (06:00)
[2019-04-05] MEDS: PRENATAL VITAMINS W/ FOLIC ACID TABLET (FP) PO SCH (10:19)
[2019-04-05] MEDS: ASPIRIN 81 MG CHEWABLE TABLETS PO SCH (10:19)
[2019-04-05] MEDS: BACITRACIN/POLYMYXIN B SULFATE 15 GM TUBE TP SCH ×2 (10:19→22:09)
[2019-04-05] MEDS: NICOTINE 21 MG/24 HOURS TOPICAL PATCH TD SCH (10:19)
[2019-04-05] MEDS: SULFAMETHOXAZOLE/TRIMETHOPRIM 800MG/160MG D.S. TABLET PO SCH ×2 (10:19→22:09)
--- NOTE | 2019-04-05 15:37 | PN ---
[facility] CIWA - CIWA Score Nausea/Vomitin-No Nausea/No Vomiting Muscle Tremors: None Anxiety: 2 Agitation: 2 Paroxysmal Sweats: No Perspiration Orientation: 0-Oriented Tacttile Disturbances: 0-None Auditory Disturbances: 0-None Visual Disturbances: 0-None Headache: 0-None Present CIWA-Ar Total Score: 4 S COWS - Scale Resting Pulse: 0= [place] 80 or Below Sweatin= No chills or Flushing Restless Observation: 0= Sits Still Pupil Size: 0= Normal to Room Light Bone or Joint Aches: 1= Mild Discomfort Runny Nose/ Eye Tearin= None GI Upset > 30mins: 1= Stomach Cramp Tremor Observation of Outstretched Hands: 0= None Yawning Observation: 0= None Anxiety or Irritability: 2=Irritable/Anxious Goose Flesh Skin: 0=Smooth Skin COWS Score: 4 S Progress Note (SOAP) Subjective: Anxious. Patient stated he should be going to [facility] today, no beds available until tomorrow. As per counselor, patient has to bring his medication on board (antibiotic) when going to [facility]. Patient reported having sutures in his right arm for 3 weeks. Stated he was doing IV drugs and site developed into an abscess which was drained and sutured. Patient afraid of relapsing if discharged today unless to inpatient rehab. Objective: 04/05/19 15:36 Last Vital Signs Temp Pulse Resp BP Pulse Ox 97.3 F L 68 18 127/73 04/05/19 13:04 04/05/19 13:04 04/05/19 13:04 04/05/19 13:04 Labs reviewed PE: Right inner forearm: 5 sutures noted embedded in skin, area c/d/I with healing scab 5 sutures removed, betadine swab used to cleanse area Assessment: 04/05/19 15:36 Withdrawal sxs Plan: Continue detox Encouraged PO water intake Scheduled for discharge to [facility] tomorrow, need to pick up driver prescription from [facility] for his clindamycin and bactrim to take to [facility] 5 sutures removed from right forearm and area cleansed with betadine swab, continue bacitracin ointment
[2019-04-05] MEDS: THIAMINE HCL 100 MG TABLET (FP) PO SCH (22:09)
[2019-04-05] MEDS: MELATONIN 5 MG TABLETS PO SCH (22:09)
[2019-04-06] MEDS: CLINDAMYCIN HCL 150 MG CAPSULE (FP) PO SCH ×3 (01:15→11:34)
[2019-04-06 06:35] VITALS: BP 98/50; PULSE 67; TEMP 97.7
--- NOTE | 2019-04-06 09:47 | DS ---
[facility] Detox Discharge Summary Admission Date: 03/31/19 Discharge Date: 04/06/19 - History Present History: Alcohol Dependence, Opioid Dependence Pertinent Past History: Pt admitted for dual detox- alcohol and heroin. Pt completed detox. Initially wanted to go to [facility]- but changed his mind today. Will go home- pt states will go to Suboxone program at [facility] in the [place]. Does not need any meds. Has Narcan kit at home. Came in the abscess related to IVDA. healed on antibiotics- with Bactrim. Vital Signs - 24 hr 04/05/19 04/05/19 04/05/19 13:04 16:50 20:39 Temperature 97.3 F L 98.1 F 99.7 F H Pulse Rate 68 72 82 Respiratory 18 18 17 Rate Blood Pressure 127/73 132/66 119/61 04/06/19 04/06/19 04/06/19 00:29 03:29 06:34 Temperature 97.7 F Pulse Rate 67 Respiratory 18 18 18 Rate Blood Pressure 98/50 L 04/06/19 06:38 Temperature Pulse Rate Respiratory 18 Rate Blood Pressure PE- suture site clear and abscess site also looks good - Physical Exam Results Vital Signs: Vital Signs Temperature 97.7 F 04/06/19 06:34 Pulse Rate 67 04/06/19 06:34 Respiratory Rate 18 04/06/19 06:38 Blood Pressure 98/50 L 04/06/19 06:34 O2 Sat by Pulse Oximetry (%) - Treatment Hospital Course: Detox Protocol Followed, Detoxed Safely, Responded well, Discharged Condition Good - Medication Discharge Medications: Ambulatory Orders Clindamycin [Cleocin -] 300 mg PO Q6HPO #7 capsule 04/05/19 Sulfamethoxazole/Trimethoprim [Bactrim Ds Tablet] 1 each PO BID #4 tablet - AMA Did Patient Leave Against Medical Advice: No
[2019-04-06] MEDS: SULFAMETHOXAZOLE/TRIMETHOPRIM 800MG/160MG D.S. TABLET PO SCH (11:33)
[2019-04-06] MEDS: ASPIRIN 81 MG CHEWABLE TABLETS PO SCH (11:33)
[2019-04-06] MEDS: NICOTINE 21 MG/24 HOURS TOPICAL PATCH TD SCH (11:34)
[2019-04-06] MEDS: BACITRACIN/POLYMYXIN B SULFATE 15 GM TUBE TP SCH (11:34)
[2019-04-06] MEDS: PRENATAL VITAMINS W/ FOLIC ACID TABLET (FP) PO SCH (11:34)
== END 2019-04-06 09:51 | disposition home or self-care (01) | DRG 773 ==
LOC: YASAS 17:44 → Y6N 21:25
PROVIDERS: ADMIT Allergy & Immunology; ATTEND Allergy & Immunology
PROC: HZ2ZZZZ Detoxification Services for Substance Abuse Treatment (ICD-10-PCS; principal; 2019-03-31)
DX: F10.230 Alcohol dependence with withdrawal, uncomplicated (principal); F11.23 Opioid dependence with withdrawal; F14.20 Cocaine dependence, uncomplicated; F17.210 Nicotine dependence, cigarettes, uncomplicated; F19.282 Other psychoactive substance dependence with psychoactive substance-induced sleep disorder; F41.9 Anxiety disorder, unspecified; G47.00 Insomnia, unspecified; B18.2 Chronic viral hepatitis C; Z88.8 Allergy status to other drugs, medicaments and biological substances; Z59.0 Homelessness
CPT/HCPCS: 93005; 93010

== ENCOUNTER 2021-03-22 16:28 | Inpatient (IN) | payer OTHER ==
[2021-03-22] MEDS ORDERED: MAGNESIUM HYDROX 2400MG/30ML ORAL SUSPENSION 30 ML CUP PO PRN (19:56)
[2021-03-22] MEDS ORDERED: MENTHOL/PHENOL 1 EACH UD MM PRN (19:56)
[2021-03-22] MEDS ORDERED: methaDONE HCL 10 MG TABLET (FOR DETOX USE ONLY) PO ONE (19:56)
[2021-03-22] MEDS ORDERED: ACETAMINOPHEN 325 MG TABLET (FP) PO PRN ×2 (19:56)
[2021-03-22] MEDS ORDERED: ONDANSETRON *ODT* 4 MG TABLET SL PRN (19:56)
[2021-03-22] MEDS ORDERED: MAGNESIUM CITRATE 300 ML BOTTLE PO PRN (19:56)
[2021-03-22] MEDS ORDERED: MAG HYDROX/AL HYDROX/SIMETH 30 ML UNIT-DOSE CUP PO PRN (19:56)
[2021-03-22] MEDS ORDERED: BISMUTH SUBSALICYLATE 524 MG/30 ML PO PRN (19:56)
[2021-03-22] MEDS ORDERED: cloNIDine HCL 0.1 MG TABLET PO PRN (19:56)
[2021-03-22] MEDS ORDERED: IBUPROFEN 400 MG TABLET (FP) PO PRN (19:56)
[2021-03-22 22:47] VITALS: BMI 24.7
[2021-03-23] MEDS ORDERED: methaDONE HCL 10 MG TABLET (FOR DETOX USE ONLY) PO ONE ×2 (01:26→10:00)
[2021-03-23] MEDS: hydrOXYzine PAMOATE 25 MG CAPSULE (FP) PO SCH ×6 (01:42→22:14)
[2021-03-23] MEDS: MELATONIN 5 MG TABLETS PO SCH ×2 (01:42→22:14)
[2021-03-23] MEDS: THIAMINE HCL 100 MG TABLET (FP) PO SCH ×2 (01:52→22:14)
[2021-03-23] MEDS: PRENATAL VITAMINS W/ FOLIC ACID TABLET (FP) PO SCH (10:51)
[2021-03-23] MEDS: NICOTINE 10 MG CARTRIDGE (INHALER) IH PRN (10:59)
[2021-03-23] MEDS ORDERED: diazePAM 5 MG TABLET PO PRN (12:25)
[2021-03-23 13:38] LABS: HEMATOCRIT 37.5 % (35.4-49); HEMOGLOBIN 12.3 GM/dL (11.7-16.9); MCH 28.8 pg (25.7-33.7); MCHC 32.9 g/dl (32.0-35.9); MEAN CELL VOLUME 87.7 fl (80-96); MEAN PLT VOLUME 7.9 fl (7.5-11.1); PLATELET COUNT 303 10^3/uL (134-434); RBC 4.28 M/mm3 (4.00-5.60); RDW 14.3 % (11.9-15.9); WHITE BLOOD COUNT 6.5 K/mm3 (4.0-10.0)
[2021-03-23 13:44] LABS: ALBUMIN 3.1 g/dl (3.4-5.0); CALCIUM 8.5 mg/dL (8.5-10.1)
[2021-03-23 13:45] LABS: BLOOD UREA NITROGEN 14.6 mg/dL (7-18)
[2021-03-23 13:47] LABS: CREATININE 0.6 mg/dL (0.55-1.3)
[2021-03-23 13:49] LABS: TOT PROT 6.4 g/dl (6.4-8.2)
[2021-03-23 13:50] LABS: BILIRUBIN,TOTAL 0.3 mg/dL (0.2-1)
[2021-03-23] MEDS: BACITRACIN 0.9 GM PACKET TP SCH ×2 (15:22→22:14)
[2021-03-23] MEDS: METHOCARBAMOL 500 MG TABLET PO PRN (22:14)
[2021-03-24] MEDS: hydrOXYzine PAMOATE 25 MG CAPSULE (FP) PO SCH ×2 (06:20→10:17)
[2021-03-24 09:20] VITALS: BP 125/71; PULSE 69; TEMP 97.3
[2021-03-24] MEDS ORDERED: methaDONE HCL 10 MG TABLET (FOR DETOX USE ONLY) PO ONE (10:00)
[2021-03-24] MEDS: NICOTINE 10 MG CARTRIDGE (INHALER) IH PRN (10:16)
[2021-03-24] MEDS: PRENATAL VITAMINS W/ FOLIC ACID TABLET (FP) PO SCH (10:17)
[2021-03-24] MEDS: METHOCARBAMOL 500 MG TABLET PO PRN (10:17)
[2021-03-24] MEDS: BACITRACIN 0.9 GM PACKET TP SCH (10:17)
[2021-03-24] MEDS ORDERED: NICOTINE 21 MG/24 HOURS TOPICAL PATCH TD SCH (10:30)
[2021-03-25 14:11] LABS: SARS-CoV-2 NAA Not Detected (Not Detected)
[2021-03-26] MEDS ORDERED: methaDONE HCL 10 MG TABLET (FOR DETOX USE ONLY) PO ONE (10:00)
== END 2021-03-24 11:14 | disposition left against medical advice (07) | DRG 770 ==
LOC: YASAS 16:28 → Y3N 23:46
PROVIDERS: ADMIT Allergy & Immunology; ATTEND Allergy & Immunology
PROC: HZ2ZZZZ Detoxification Services for Substance Abuse Treatment (ICD-10-PCS; principal; 2021-03-22)
DX: F11.23 Opioid dependence with withdrawal (principal); F10.230 Alcohol dependence with withdrawal, uncomplicated; F14.20 Cocaine dependence, uncomplicated; F17.210 Nicotine dependence, cigarettes, uncomplicated; F31.9 Bipolar disorder, unspecified; F41.9 Anxiety disorder, unspecified; B18.2 Chronic viral hepatitis C; Z88.8 Allergy status to other drugs, medicaments and biological substances
CPT/HCPCS: 36415; 80053; 85027; 86780; C9803; U0003; U0005